=== PATIENT | male | born 2000 | race Caucasian/White ===

== ENCOUNTER 2024-04-11 00:06 | Emergency (ER) | payer OTHER ==
[~2024-04-11] VITALS: Ht 182.9 cm; Wt 99.8 kg
[2024-04-11 00:14] VITALS: BP_SYST 116; PULSE 104; RESP 20; TEMP 98.9; O2SAT 96
[2024-04-11] MEDS ORDERED: NAPR-690 PO (01:27)
[2024-04-11 01:35] VITALS: BP_SYST 122; PULSE 60; RESP 18; TEMP 98.1; O2SAT 99
== END 2024-04-11 01:38 | disposition home or self-care (01) ==
LOC: SED 00:06
DX: S09.8XXA Other specified injuries of head, initial encounter (principal); R22.0 Localized swelling, mass and lump, head; Z79.899 Other long term (current) drug therapy; Y08.89XA Assault by other specified means, initial encounter; Y93.89 Activity, other specified; Y92.89 Other specified places as the place of occurrence of the external cause; Y99.8 Other external cause status
CPT/HCPCS: 70450-TC; 70486; 99284